=== PATIENT | female | born 1995 | race Caucasian/White ===

== ENCOUNTER 2016-10-16 09:41 | Emergency (ER) | payer BC ==
[2016-10-16 09:48] VITALS: BP 136/83; PULSE 75; RESP 18; TEMP 97.7; O2SAT 97
[2016-10-16] MEDS ORDERED: diphenhydrAMINE 25 MG CAP PO ONE (10:08)
--- NOTE | 2016-10-16 10:18 | EDPHY ---
H & P Smoking Status: Never smoked Time Seen by Provider: 10/16/16 10:10 HPI/ROS: CHIEF COMPLAINT: "I Think I was bitten by a bug" HISTORY OF PRESENT ILLNESS: 20-year-old female arrives via private vehicle complaining of left upper eyelid soft tissue swelling, itching after possible mosquito bite to same region last evening while at work. She woke with soft tissue swelling of the left upper lid. No pain with extraocular movements. No proptosis. No headache. No nausea or vomiting. No dysphagia or odynophagia no dyspnea. REVIEW OF SYSTEMS: A ten point review of systems was performed and is negative with the exception of the items mentioned in the HPI PAST MEDICAL & SURGICAL HISTORY: No pertinent medical or surgical history SOCIAL HISTORY: Works at a restaurant PHYSICAL EXAM (Prior to examination, patient consented to physical exam, hands were washed and my usual and customary physical exam procedures followed) 1) GENERAL: Well-developed, well-nourished, alert and oriented. Appears to be in no acute distress. 2) HEAD: Normocephalic, atraumatic 3) HEENT: Pupils equal, round, reactive to light bilaterally. Sclera anicteric. No pain with extraocular movements. No proptosis. There is a single lesion to the left upper lid with dependent edema. Nasopharynx, oropharynx, clear, no lesions. 4) NECK: Full range of motion, no meningeal signs. 5) LUNGS: Clear auscultation bilaterally, no wheezes, no rhonchi, no retractions. 6) HEART: Regular rate and rhythm, no murmur, no heave, no gallop. 7) ABDOMEN: No guarding, no rebound, no focal tenderness, 8) MUSCULOSKELETAL: No peripheral edema or discoloration. 9) BACK: no visual or palpable abnormality. 10) SKIN: No rash, no petechiae. 11) Psychiatric: Patient is oriented X 3, there is no agitation. DIFFERENTIAL DIAGNOSIS: in no particular include but limited to cellulitis, zoster, localized inflammatory response secondary to insect bite (Jacqui,Jesús Alie) Constitutional: Initial Vital Signs Temperature (C) 36.5 C 10/16/16 09:45 Heart Rate 75 10/16/16 09:45 Respiratory Rate 18 10/16/16 09:45 Blood Pressure 136/83 H 10/16/16 09:45 O2 Sat (%) 97 10/16/16 09:45 O2 Delivery Mode Room Air Allergies/Adverse Reactions: No Known Allergies Allergy (Unverified 10/16/16 09:44) Home Medications: Medication Instructions Recorded Bcp 10/16/16 MDM/Departure - MDM Medications Given: Discontinued Medications Diphenhydramine HCl (Benadryl) 25 mg PO EDNOW ONE Stop: 10/16/16 10:09 Last Admin: 10/16/16 10:13 Dose: 25 mg ED Course/Re-evaluation: Of the patient's symptoms are more likely secondary to localized inflammatory an allergic response. Doubt periorbital cellulitis, doubt orbital cellulitis, doubt zoster, doubt anaphylaxis. Recommend Benadryl, cold packs and usual and customary discharge precautions instructions provided. (Jesús Osman) The patient was evaluated and managed by the physician assistant infant toddler teacher. I have reviewed this chart and I agree with the findings and plan of care as documented , as indicated by my signature. I am the secondary supervising physician. ( Clara Workman) - Depart Disposition: Home, Routine, Self-Care Clinical Impression: Mosquito bite Qualifiers: Encounter type: initial encounter Qualified Code(s): W57.XXXA - Bitten or stung by nonvenomous insect and other nonvenomous arthropods, initial encounter Condition: Good Instructions: Insect Bite or Sting (ED) Additional Instructions: Return to the emergency department if you develop pain with eye movement, inability to open your RI, headache, fevers, difficulty breathing or any other symptoms that concern you Stand Alone Forms: Work Comp Follow Up Referrals: Follow-up, with your work comp provider in 2 days [Other] - As per Instructions
== END 2016-10-16 10:30 | disposition home or self-care (01) ==
DX: S00.262A Insect bite (nonvenomous) of left eyelid and periocular area, initial encounter (principal); W57.XXXA Bitten or stung by nonvenomous insect and other nonvenomous arthropods, initial encounter